=== PATIENT | female | born 1935 | race Caucasian/White ===

== ENCOUNTER 2021-07-31 17:42 | Emergency (ER) | payer MEDICARE ==
[~2021-07-31] VITALS: Ht 160 cm; Wt 68.5 kg
== END 2021-07-31 23:30 | disposition home or self-care (01) ==
LOC: ED 17:42
DX: U07.1 COVID-19 (principal); I10 Essential (primary) hypertension; E78.00 Pure hypercholesterolemia, unspecified; Z91.041 Radiographic dye allergy status; Z88.8 Allergy status to other drugs, medicaments and biological substances
CPT/HCPCS: 99284-25; C9803; M0243; Q0244; U0003